=== PATIENT | female | born 1985 ===

== ENCOUNTER 2017-09-21 07:07 | Day surgery (SDC) | payer OTHER ==
[2017-09-20 14:47] VITALS: BMI 30.9
[2017-09-21] MEDS ORDERED: Lactated Ringer's 1,000 ML IV ONE ×2 (07:58→13:00)
[2017-09-21] MEDS ORDERED: Lidocaine 1% Inj (20ml) IJ ONE (08:13)
[2017-09-21] MEDS ORDERED: Bupivacaine 0.5% Inj(30mL) IJ ONE (08:13)
[2017-09-21] MEDS ORDERED: ceFAZolin 1 GM in Sodium Chloride 0.9% 100 ML IVPB ONE (08:13)
[2017-09-21] MEDS ORDERED: Sodium Chloride 0.9% 1,000 ML IV SCH (08:15)
--- NOTE | 2017-09-21 08:16 | CP.SDSHP ---
Same Day Surgery H & P - History Proposed Procedure: ORIF of Right Talar Neck Fracture - Previous Medical/Surgical History Pain: 4.Moderate Pain - Allergies Allergies: Allergies No Known Allergies Allergy (Verified 09/20/17 14:47) - Physical Exam Vital Signs: Vital Signs 09/21/17 09/21/17 07:36 07:40 Temperature 98.4 F Pulse Rate 73 73 Respiratory 20 Rate Blood Pressure 113/71 O2 Sat by Pulse 99 Oximetry - {Optional Preform as Required} Other Pertinent Findings: Patient posterior splint left intact, CFT less than 3 seconds, patient able to wiggle digits - Impression Pt. Evaluated Today:Candidate for Anesthesia & Procedure: Yes - Date & Time Date: 09/21/17 Time: 08:16 Short Stay Discharge - Short Stay Discharge Admitting Diagnosis/Reason for Visit: S92.109A Disposition: HOME/ ROUTINE Referrals: Sonam Benavides DPM [Primary Care Provider] -
[2017-09-21] MEDS ORDERED: ceFAZolin IV 1 gm in Dextrose 2 GM/100 ML BAG IVPB ONE (08:21)
[2017-09-21] MEDS ORDERED: Lidocaine 2% MPF (5 ml) Inj ONE (08:21)
[2017-09-21] MEDS ORDERED: Bupivacaine HCl 0.25% PF (30 ml) Inj ONE (08:21)
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
[2017-09-21] MEDS ORDERED: Ropivacaine 0.5% 30ML IV ONE (09:00)
[2017-09-21] MEDS ORDERED: Propofol 10 mg/ml Inj (20 ML) ONE (09:16)
[2017-09-21] MEDS ORDERED: Midazolam 2 MG/2 ML VIAL ONE (09:16)
[2017-09-21] MEDS ORDERED: Bupivacaine HCl 0.5% PF (10 ml) Inj IJ ONE (14:20)
[2017-09-21] MEDS ORDERED: Povidone Iodine Topical 10% Sol TOP ONE (14:30)
[2017-09-21] MEDS ORDERED: Oxycodone/Acetaminophen 5/325 mg Tab PO PRN ×2 (14:54)
--- NOTE | 2017-09-21 14:57 | RAD ---
Date of service: 09/21/2017 PROCEDURE: Greater than 1 hour for fluoroscopy HISTORY: RIGHT ANKLE COMPARISON: None TECHNIQUE: Standard protocol for this study/examination. FINDINGS: Total fluoroscopic time (continuous mode) utilized during the procedure (seconds) 276.4 IMPRESSION: Submitted images from the current procedure: 7.0
--- NOTE | 2017-09-21 14:57 | PCM.ANESB7 ---
Adductor Canal Block - Adductor Canal Block Date of Procedure: 09/21/17 Anesthiologist: Vince Vines MD - Procedure Adductor Canal Block: The procedure was explained to the patient that it is for the post-operative pain management. Consent was obtained after a thorough discussion with the patient regarding the benefits and possible complications of local anesthetic adductor canal block of the femoral nerve. Standard monitors, as defined by the ASA, were applied to the patient. Time-out was held with the circulating nurse to confirm the appropriate block. After applying supplemental oxygen and administering IV Sedation as needed, the patient was placed in supine position with and the operative leg was flexed slightly at the knee and externally rotated as needed, and was kept anatomically stable. The mid-thigh of the ___ lower extremity was exposed. The ultrasound transducer was then applied transversely along the medial aspect, about midway down the thigh and the femoral artery and vein were identified in appropriate relation with the sartorius muscle. At this time, the femoral nerve was visualized lateral to the femoral artery within the canal. After thorough identification, this area area was prepped with Chloroprep solution three times and 1 % Lidocaine was injected subcutaneously for topical anesthesia. At this point, a #22 gauge Stimuplex 4-inch needle was inserted in-plane in a [id number]-ptzilf orientation, and advanced toward the femoral nerve. Advancement was performed carefully under direct ultrasound visualization. Nerve stimulator was used and appropriate muscle twitch was obtained at current of MA. After negative aspiration, cc of % was injected and this was followed with cc of % . Under ultrasound guidance the local anesthetics were observed spreading around the femoral nerve. The needle was removed intact and sterile dressing was applied. The patient had stable vital signs, was conscious and in no apparent distress. The patient tolerated the femoral nerve block well with stable vital signs and was prepared for subsequent surgery
--- NOTE | 2017-09-21 15:01 | PCM.SURG1 ---
Surgeon's Initial Post Op Note - Surgeon's Notes Surgeon: Dr. Sonam Benavides Jewelry Finisher: Dr. Cesar Craven, PGY3, Dr. Christiane Timmons, PGY3, Dr. Joel Skaggs Type of Anesthesia: General LMA Anesthesia Administered By: Dr. Harry Pre-Operative Diagnosis: R talar neck fracture Operative Findings: see dictation. I: intra-op 10 cc 0.25% Marcaine plain, popliteal block. M: 2-0 Vicryl, 3-0 Vircyl, 4-0 Vicryl, 4-0 Prolene, 38 mm 3.5 fully threaded screw, 50 mm 3.5 fully threaded screw Post-Operative Diagnosis: same Operation Performed: ORIF talar neck fracture Specimen/Specimens Removed: NA Estimated Blood Loss: EBL {In ML}: 15 Blood Products Given: N/A Drains Used: No Drains Post-Op Condition: Good Date of Surgery/Procedure: 09/21/17 Time of Surgery/Procedure: 15:02
--- NOTE | 2017-09-21 15:01 | PCM.ANESB7 ---
Adductor Canal Block - Adductor Canal Block Date of Procedure: 09/21/17 Procedure Performed: Adductor Canal Block Right - Procedure Adductor Canal Block: The procedure was explained to the patient that it is for the post-operative pain management. Consent was obtained after a thorough discussion with the patient regarding the benefits and possible complications of local anesthetic adductor canal block of the femoral nerve. Standard monitors, as defined by the ASA, were applied to the patient. Time-out was held with the circulating nurse to confirm the appropriate block. After applying supplemental oxygen and administering IV Sedation as needed, the patient was placed in supine position with and the operative leg was flexed slightly at the knee and externally rotated as needed, and was kept anatomically stable. The mid-thigh of the __ right lower extremity was exposed. The ultrasound transducer was then applied transversely along the medial aspect, about midway down the thigh and the femoral artery and vein were identified in appropriate relation with the sartorius muscle. At this time, the femoral nerve was visualized lateral to the femoral artery within the canal. After thorough identification, this area area was prepped with Chloroprep solution three times and 1 % Lidocaine was injected subcutaneously for topical anesthesia. At this point, a #22 gauge Stimuplex 4-inch needle was inserted in-plane in a yhytfnq-xe-nialqc orientation, and advanced toward the femoral nerve. Advancement was performed carefully under direct ultrasound visualization. Nerve stimulator was used and appropriate muscle twitch was obtained at current of _0.2____MA. After negative aspiration, __12___cc of 0.25 % _ropivacaine__ was injected and this was followed with cc of % . Under ultrasound guidance the local anesthetics were observed spreading around the femoral nerve. The needle was removed intact and sterile dressing was applied. The patient had stable vital signs, was conscious and in no apparent distress. The patient tolerated the femoral nerve block well with stable vital signs and was prepared for subsequent surgery
--- NOTE | 2017-09-21 15:12 | PCM.ANESB2 ---
Popliteal Nerve Block - Popliteal Nerve Block Date of Procedure: 09/21/17 Procedure Performed: Popliteal Nerve Block Right - Procedure Popliteal Nerve Block: This procedure was explained to the patient that it is for post-operative pain management. Consent was obtained after a thorough discussion with the patient regarding the benefits and possible complications of local anesthetic block of the sciatic nerve at the popliteal level. The patient was brought to the operating room and standard monitors are applied. Time-out was held with the circulating nurse to confirm the correct surgery and the appropriate block. After applying oxygen by nasal cannula and administering IV Sedation, patient's operative leg was gently raised and supported and the groove in between the biceps femoris and vastus lateralis muscles was carefully palpated. The skin approximately 8cm above the popliteal crease was then marked. The ultrasound transducer was then applied to the posterior thigh approximately 8cm above the popliteal crease in the transverse plane and the sciatic nerve before its division was visualized lateral to the popliteal artery and in between the bicep femoris and semimembranosus/semitendinosus muscles. After identification, the lateral portion of the thigh was prepped with Betadine solution three times and Lidocaine 1% was injected subcutaneously for topical anesthesia. At this point, a # 21 gauge Stimuplex insulated 4 inch needle was inserted into pre-marked area and advanced in a perpendicular direction. The needle was inserted above the ultrasound transducer in-plane towards the sciatic nerve in a ajkyljk-yn-kjwygg direction. Needle advancement was performed carefully under direct ultrasound visualization. Nerve stimulator was used and dorsiflexion of the _right____ foot was elicited at a current of _0.2____ MA. After repeated negative aspiration, _30____cc of 0.25 % _ropivacaine was injected and this was flowed with cc of % . Under ultrasound guidance the local anesthetics were observed surrounding sciatic nerve . The needle was removed intact and sterile dressing was applied. The patient tolerated the popliteal nerve block well with stable vital signs and was subsequently prepared for the surgery.
[2017-09-21 15:14] VITALS: RESP 18
[2017-09-21] MEDS ORDERED: Lactated Ringer's 1,000 ML IV SCH (15:15)
[2017-09-21] MEDS: HYDROmorphone 0.5 mg/0.5 ml ISec IVP PRN ×2 (15:25→16:25)
--- NOTE | 2017-09-21 16:16 | RAD ---
Date of service: 09/21/2017 PROCEDURE: Right Ankle Radiographs. HISTORY: s/p ORIF right talar neck fracture COMPARISON: None FINDINGS: Distal right lower extremity cast limits evaluation of fine bony detail. Two screws transfixing a talar neck fracture are present. IMPRESSION: Postsurgical changes.
[2017-09-21 18:13] VITALS: BP 132/76; PULSE 96; TEMP 98.9; O2SAT 99
[2017-09-23 07:19] LABS: % CD4 (T HELPER CELL) 44 Percent (30-61); % CD8 (SUPPRESSOR T CELL) 33 Percent (12-42); ABSOLUTE CD4 CELLS 983 Cells/mcL (490-1740); ABSOLUTE CD8 CELLS 738 Cells/mcL (180-1170); ABSOLUTE LYMPHOCYTES 2245 Cells/mcL (850-3900); HELPER/SUPPRESSOR RATIO 1.33 Ratio (0.86-5.00)
--- NOTE | 2017-09-23 12:53 | RAD ---
Date of service: 09/21/2017 PROCEDURE: Right Foot Radiographs. HISTORY: s/p right ORIF talar neck fracture COMPARISON: None. FINDINGS: BONES: Orthopedic hardware identified left scaphoid and talus. Radiographic findings, removal of orthopedic hardware of the calcaneus. No evidence of orthopedic hardware failure. JOINTS: Normal. SOFT TISSUES: Normal. OTHER FINDINGS: None. IMPRESSION: Satisfactory postoperative status. Limitations of the current study: Detail obscured by overlying fiberglass cast.
--- NOTE | 2017-09-26 21:14 | PCM.OP ---
Operative Report - Operative Report Date of Surgery/Procedure: 09/21/17 Time of Surgery/Procedure: 09:00 Surgeon: Dr. Sonam Benavides Slitter And Cutter Operator: Dr. Bayron Timmons, Dr. Cesar Craven, Dr. Joel Skaggs Anesthesia/Sedation: General LMA Pre-Operative Diagnosis: Pre-Operative Diagnoses: 1)Right ankle displaced talus fracture Post-Operative Diagnosis: same Indication for Surgery: Indications: The patient is a 34 year-old male with the above diagnoses. The patient signed the consent after careful explanation of risks, benefits, complication and alternatives for surgical procedure. No guarantees were given nor implied. 1 gram of ancef IV was given to the pt hour prior to the procedure. NPO status was confirmed prior to taking pt to the OR. Operative Findings: Preparation: The patient was brought to the operating room and placed on the operating room table in supine position. A well-padded pneumatic thigh tourniquet was placed to the patient's Right lower extremity. After induction of general anesthesia, the Right lower extremity was then prepped and draped in usual sterile manner. Esmarch was utilized to exsanguinate the patient's Right foot. Pneumatic thigh tourniquet was then inflated to 350 mmHg and procedure began. Procedure/Operation Description: PROCEDURE #1: Right ankle open reduction and internal fixation of Talus. Attention was directed to the medial aspect of the Right heel. Adequate position of the joystick pin placement was determined under Intra-operative Xray. A small stab incision was made to the medial aspect of calcaneus at the level of the calcaneal tuberosity. A Synthes 5.0mm reduction pin was placed into the calcaneus from medial to lateral direction to be used as reduction joystick. Another stab incision was made to the lateral aspect of the calcaneus at the location of the skin tenting for the pin to travel through. Next, attention was direct to the posterior aspect of the right ankle, just lateral to Achilles tendon. Utilizing #15 blade an approximately 3cm linear longitudinal incision was made to the postero-lateral aspect of the right ankle between Achilles tendon and lateral malleolus. At this time, the incision was carried deep using sharp and blunt dissection, taking care to retract all vital neurovascular structures. All bleeders were cauterized and ligated as necessary. Once posterior aspect of Talus was visualized through the incision, a Synthes 5.0mm reduction pin was placed from posterior to anterior direction to be used as a joystick. Next, Attention is directed to the medial aspect of right foot. Utilizing #15 blade an approximately 4cm linear longitudinal incision was made from the tip of medial malleolus to navicular bone. At this time, the incision was carried deep using sharp and blunt dissection, taking care to retract all vital neurovascular structures. All bleeders were cauterized and ligated as necessary. A Complete, displaced fracture of talar neck was exposed through the incision with visible callus formation around the fracture site. Utilizing a curette, the fracture site was cleaned free of callus to prevent impingement of the reduction. Next, Attention is directed to the lateral aspect of right foot. Utilizing #15 blade an approximately 4cm linear longitudinal incision was made from the tip of lateral malleolus to 4th metatarsal base. At this time, the incision was carried deep using sharp and blunt dissection, taking care to retract all vital neurovascular structures. All bleeders were cauterized and ligated as necessary. A Complete, displaced fracture of talar neck was exposed through the incision with visible callus formation around the fracture site. Utilizing a curette, the fracture site was cleaned free of callus to prevent impingement of the reduction. Next, through the original incision, articulating head of the talus was exposed by placement of the hintermann distractor. Under intra- operative fluoroscopy, the joysticks placed into calcaneus and talus were manipulated to achieve best reduction of the fracture site. Once adequate reduction was achieved, a bone clamp was utilized through the medial incision to keep the reduction in place. Adequate reduction of the talar neck was confirmed with direct visualization and intra-operative Xray. Next, a 0.062 K- wire was placed into posterior aspect of Talus across the fracture site from posterior to anterior direction under fluoroscopic guidance to function as a temporary fixation. Next, following AO technique and principles, the a 4.0mm fully threaded cannulated screw was placed from posterior to anterior direction. The proper screw locations and excellent anatomical reduction were confirmed under direct visualization and intraoperative fluoroscopy. The surgical site was irrigated with copious amount of normal sterile saline. Next , attention was redirected to the medial aspect of the right foot, articulating head of the talus. Next, following AO technique and principles, a 4.0mm fully threaded cannulated screw was placed from daniel-medial to postero-lateral direction. Utilizing the counter-sink freight delivery driver, the head of the screw was made sure to sit deep into the articulating cartilage of the talar head to prevent joint damage upon range of motion. The proper screw locations were confirmed under direct visualization and intraoperative Xray. The surgical site was irrigated with copious amount of normal sterile saline. Next, all temporary k- wire fixations, hintermann distractors, and joysticks were removed from calcaneus and talus. The proper screw locations were confirmed under direct visualization and intraoperative Xray. The surgical site was irrigated with copious amount of normal sterile saline. Deep soft tissues of right foot and ankle were reapproximated with #2-0, #3-0 Vicryl, subcutaneous tissue were reapproximated with #4-0 vicryl, and the Skin was reapproximated with #4-0 Prolene in horizontal mattress suture technique. Medial aspect of the right ankle was infiltrated with 10ml of 0.5% Marcaine plain for saphenous nerve block. Right lower extremity was dressed with Betadine soaked adaptic, 4x4, Kerlix and posterior splint. The attending was present during the entire case. Estimated Blood Loss: Less than 20 mL Complications: none Discharge & Condition: Postoperative Condition: The patient tolerated the anesthesia and procedure well and was escorted to the recovery room with vital signs stable and neurovascular status intact to the Right foot. The patient received regional popliteal block by the anesthesiologist after the case. This patient will follow up with Dr. Sonam Benavides.
== END 2017-09-21 18:25 | disposition home or self-care (01) ==
LOC: H.OPSURG 07:07
PROVIDERS: ATTEND Student in an Organized Health Care Education/Training Program
DX: S92.109A Unspecified fracture of unspecified talus, initial encounter for closed fracture (principal); Z21 Asymptomatic human immunodeficiency virus [HIV] infection status; D64.9 Anemia, unspecified; Y93.01 Activity, walking, marching and hiking
CPT/HCPCS: 28445; 36415; 73610; 73630; 84703; 86360; 97161; C1713; C1769; G8978; G8979; G8980; J0690; J1170; J2001; J2250; J2405; J2704; J3010; J7030; J7120